=== PATIENT | male | born 1960 | race American Indian/Alaskan Native ===

== ENCOUNTER 2018-06-01 07:52 | Outpatient (CLI) | payer MEDICARE ==
--- NOTE | 2018-06-01 09:32 | Magnetic Resonance Report ---
MR CERVICAL SPINE WITHOUT CONTRAST HISTORY: Cervical disc displacement, high cervical region. TECHNIQUE: Axial T2 and T2 gradient. Sagittal T1, T2 and STIR. COMPARISON: None at this facility. FINDINGS: Anterior fusion hardware is in place spanning from C3-T1 which generates moderate artifact. There is normal height and alignment of the vertebral bodies. No obvious abnormal bone marrow signal is detected although there is significant artifact overlying the bony structures from metallic hardware. Mild diffuse disc desiccation and narrowing is evident. The disc appears to be fused at C3-4. The posterior elements are in appropriate relationship. Mild facet arthropathy is identified at C4-5 and C5-6. No hypertrophic changes. The cervical spinal cord is abnormal. There is a focal cord atrophy with increased T2 signal at the level of C3-4 and C5-C6 consistent with myelomalacia. C2-3: No significant abnormality. C3-4: No significant abnormality other than focal cord myelomalacia. C4-5: Mild bilateral uncovertebral spurring is identified resulting in mild bilateral neuroforaminal narrowing estimated at 25-50%.. C5-6: Mild bilateral uncovertebral spurring is identified. Bilateral neuroforaminal narrowing is estimated at 25%. 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 C6-7: No significant abnormality. C7-T1: No significant abnormality. T1-2: Moderate to large right paracentral to right lateral disc protrusion is identified which extends into the right neural foramen. Right neural foraminal narrowing is estimated at 50-75%. IMPRESSION: Stable appearance of the anterior fusion changes spanning from C3-T1. There are focal areas of cervical spinal cord atrophy at the levels of C3-4 and C5-6 consistent with myelomalacia. Mild cervical spondylosis as described above. Moderate to large right paracentral to right lateral disc protrusion at T1-2. See above.
== END 2018-06-01 07:53 | disposition home or self-care (01) ==
LOC: MRI 07:52
PROVIDERS: ATTEND Student in an Organized Health Care Education/Training Program
DX: M48.8X2 Other specified spondylopathies, cervical region (principal); M47.892 Other spondylosis, cervical region
CPT/HCPCS: 72141